=== PATIENT | female | born 2000 | race Caucasian/White ===

== ENCOUNTER → 2024-08-28 15:23 | Outpatient (CLI) | payer OTHER, SELFPAY ==
[2024-08-29 12:35] LABS: Strep Grp B PCR NEG for Grp B Strep
== END ==
PROVIDERS: PCP Family Medicine; Visit Provider Family Medicine
DX: Z36.85 Encounter for antenatal screening for Streptococcus B (principal)
CPT/HCPCS: 87653

== ENCOUNTER → 2024-09-03 10:58 | Outpatient (CLI) | payer OTHER, BC, SELFPAY ==
[2024-09-03 11:51] LABS: COVID-19 CEPHEID 4-PLEX PCR Negative (Negative); Influenza A - CEPHEID Flu A NEGATIVE (NEGATIVE); Influenza B - CEPHEID Flu B NEGATIVE (NEGATIVE)
== END ==
PROVIDERS: PCP Family Medicine; Visit Provider Family Medicine
DX: R05.8 Other specified cough (principal); R68.89 Other general symptoms and signs; R53.83 Other fatigue
CPT/HCPCS: 87637

== ENCOUNTER 2024-09-06 16:59 | Observation (INO) | payer BC, OTHER, SELFPAY | END 2024-09-06 19:32 | disposition home or self-care (01) | LOC: LABOR 17:02 | PROVIDERS: Admitting Provider Family Medicine; PCP Family Medicine; Referring Provider Family Medicine; Visit Provider Family Medicine | DX: O47.1 False labor at or after 37 completed weeks of gestation (principal); Z3A.37 37 weeks gestation of pregnancy | CPT/HCPCS: 59025; 59050; G0378; G0379 ==

== ENCOUNTER 2024-09-15 15:28 | Inpatient (IN) | payer BC, OTHER, SELFPAY ==
[2024-09-15 16:59] LABS: Appearance Urine UA CLEAR; Bilirubin Urine UA NEGATIVE (NEGATIVE); Color Urine UA YELLOW; Glucose Urine UA NEGATIVE (Negative); Ketones Urine UA NEGATIVE (NEGATIVE); Leukocyte Esterase Urine UA TRACE (NEGATIVE); Nitrite Urine UA NEGATIVE (Negative); Occult Blood Urine UA NEGATIVE (Negative); Protein Urine UA TRACE (Negative); Specific Gravity Urine UA 1.025 (1.000-1.035); Urobilinogen Urine UA 1.0 E.U./dL (0.2)
[2024-09-15 17:06] LABS: pH Urine UA 6.0 (4.5-8.0)
[2024-09-15 17:07] LABS: Culture Indicated Urine Specimen Cultured
--- NOTE | 2024-09-15 19:45 | PM.OBHP.IH.1 ---
OB HPI Date/Time Date of admission: 09/15/24 Date Patient Seen: 09/16/24 Time Patient Seen: 06:45 History of Present Condition Chief complaint: decreased movment YOHAN Calculator Estimated Delivery Date Method Current WG Current Estimate 09/25/24 LMP (Certain) 38w 5d Estimated Gestational Age (weeks): 38w4d : 3 Para: 1 Narrative: 24 yo presenting with decreased movement at 38w4d. FHT reassuring on arrival but UA colelcted showing many bacteria and leukocyte esterase. While awaiting labs SVE changes from 3cm/50/-3 --> 5/70/-3 on repeat check 2 hours later. FHT reassuring and reactive. While walking she felt LOF but amnisure negative. complicated by late GAURAV wtih arrival here at 33weeks EGA. Also carrying a previous dx of renal tubular acidosis. She was seen by MFM prior to GAURAV who felt that that this was more likely Vit D deficiency and did not recommend any further management changes. Baby girl Ortiz care: good care Dating criteria OB: LMP confirmed by 1st trimester US Ultrasounds: normal 1st trimester US Obstetrical complications: none Medical complications OB: none Preadmission Labs Last OB Lab Results: Blood Type AB Positive 09/15/24, 20:48 Antibody Screen Negative 09/15/24, 20:48 Hct, (36-46) 33.7 % L 09/15/24, 20:48 Hgb, (12.0-16.0) 11.4 g/dL L 09/15/24, 20:48 Group B Strep (PCR) Neg for grp b strep 08/28/24, 15:23 Glucose Tolerance Testin hr (107) -: PAP smear: Normal (outside labs - negative in 2022 ) External Labs Blood type OB HPI: AB (+) positive -: Antibody screen: negative (outside labs at [facility]), HBsAG: negative (outside labs at [facility]), HIV: negative (outside labs at [facility]), RPR/VDLR: unknown (outside labs at [facility]), Chlamydia screen: negative (outside labs at [facility]) and Gonorrhea screen: negative (outside labs at [facility]) -: Rubella: immune and Varicella: immune HCAB: negative PAP: Normal (2022) Prior (ies) Past Pregnancies Del. Date GA/Weeks Labor Lgth Wt Sex Route Outcome Anesthesia Place Delv Breastfeed Preg Comp Name 07/02/20 ~8 spontaneous 01/19/22 37.6 21 6 lb 14 oz Female vaginal live - full term epidural [facility] 10 months none Ginny Delivery Date: 07/02/20 Last Updated by: Charity Beard RN passed spontaneously, no complications Hx # Term Pregnancies: 1 Hx # Pregnancies: 0 Number of Living Children: 1 Multiple births: 0 Spontaneous abortions: 1 Ectopic pregnancies: 0 Elective abortions: 0 Evaluation Evaluation Baseline heart rate: 150 Variability: Moderate (6-25) monitor accelerations: Present Monitor Decelerations: Absent Contraction Frequency (minutes): 0 Category of Tracing: Reactive Status: Category l Dilation (cm): 5 Dilation: >/=5 cm Effacement: 60-70% station: -3 Position of cervix: mid Consistency: soft Rodriguez score: 8 Non-invasive Membranes Rupture Test: negative [facility] Medical History (Updated 07/23/24 @ 14:57 by Charity Beard RN) depression TBI (traumatic brain injury) (~2015) Gastric ulcer (~2004) Surgical History (Updated 07/23/24 @ 13:52 by Charity Beard RN) H/O tooth extraction (~2022) [place] teeth extracted (~2017) Family History (Updated 07/23/24 @ 13:57 by Charity Beard RN) Sister DiGeorge syndrome Congenital heart defect Grandmother Ovarian cancer Aunt Cervical cancer Grandfather Kidney stones Father Family estrangement Alcoholism Grandfather Diabetes mellitus Social History marital status: number of children: 1 household members: spouse and children lives independently: Yes caregiver/support person: Yes housing: apartment pets and animals: Yes (dog) education level: college (associate's degree) occupational status: unemployed current occupational exposures/hazards: No ginny/temple: [employer] special ginny needs: No travel history: recent ([place] ~2 months before conception) Smoking Status: Former smoker Tobacco: How many years used: 6 (off and on; quit w/ 1st until dtr was ~13 months old) second hand exposure: No alcohol intake: former (occasionally when not ) during the past year weight has: other (back to pre-baby weight at time of conception) well-balanced diet: about half the time daily servings fruits/ve-4 (mostly fruit) caffeine: Yes (100-120mg/day) Type(s) of exercise: other (active w/ toddler) Meds Home Medications and Allergies Home Medications ?Medication ?Instructions ?Recorded ?Confirmed ?Type vitamin-ferrous sulfate tab PO 07/23/24 09/11/24 History 27 mg iron-folic acid 0.8 mg tablet cyclobenzaprine 5 mg tablet 5 mg PO BEDTIME PRN muscle spasm 08/12/24 09/11/24 Rx #30 tabs Allergies Allergy/AdvReac Type Severity Reaction Status Date / Time No Known Drug Allergies Allergy Unverified 09/11/24 15:31 Review of Systems Review of Systems Narrative: contractions starting to get more noticeable after starting pit + movement - LOF OB Exam Vital signs Blood Pressure: 116/71 Pulse Rate: 102 Temperature: 97.0 F Narrative Exam Narrative: GEN: comfortable appearing Pulm: breathing comfortably on RA ABd: gravid MSK: sittng up in bed, moving all extremities neuro: non-focal Objective Labs 09/15/24 20:48 09/15/24 20:48 Labs: Laboratory Results - last 24 hr 09/15/24 16:26 Urine Color Yellow Urine Appearance Clear Urine pH 6.0 Ur Specific [place] 1.025 Urine Protein Trace H Urine Glucose (UA) Negative Urine Ketones Negative Urine Occult Blood Negative Urine Nitrate Negative Urine Bilirubin Negative Urine Urobilinogen 1.0 Ur Leukocyte Esterase Trace H Urine RBC None seen Urine WBC 5-10/hpf H Ur Squamous Epith Cells 5-10 /hpf H Calcium Oxalate Crystal Few H Urine Bacteria Many (>30) H Ur Culture Indicated? Specimen cultured Vol Urine Centrifuged 10ml (spun) Assessment and Plan Assessment and Plan Assessment and Plan narrative: 24 yo presenting at 38w4d (now 38w5d) by LMP c/w8w US wtih decreased movement, reassuring NST, while awaiting labs noting LOF, Amnisure negative. SVE showing cervical change from 3 to 5cm. Decision made to admit to due to cervical change. She was managed expectantly overnight. This AM,has made cervcal change to 6.5cm but still feeling minimal discomfort. Pitocin starting to assist with descent. Will repeat exam in 1-2 hours and determine if safe for rupture at that time. pt planing for epidural so will work on this now while awaiting f/up SVE. # SIUP at term: - admit to LD - continuous monitoring - Anesthesia consult - CBC, TS - cephalic by bedside US - GBS negative # UA on arrival with bacteriuria - one time Ceftriaxone dose 1g Time-Based Coding :: [TOTAL MINUTES] spent with patient and on the chart (including review of chart, obtaining history, exam, reviewing outside data, placing orders, documenting exam and treatment plan, and counseling patient) on [DATE].
[2024-09-15 20:01] VITALS: BP 116/71; PULSE 102; TEMP 36.1
[2024-09-15 21:00] LABS: Add Manual Diff / Slide Review NO; Hematocrit 33.7 % (36-46); Hemoglobin 11.4 g/dL (12.0-16.0); Lymphocytes Absolute Auto 2400 /uL (1100-4500); Mean Corpuscular HGB Conc 33.9 % (30-36); Mean Corpuscular Hemoglobin 27.1 PG (26-34); Mean Corpuscular Volume 79.8 fL (80-100); Platelet Count 331 X10^3/uL (150-400)
[2024-09-15 21:24] LABS: Alanine Aminotransferase 25 IU/L (<35); Albumin 3.3 g/dL (3.5-5.0); Albumin Globulin Ratio 1.0 (1.0-2.8); Alkaline Phosphatase 152 U/L (38-126); Blood Urea Nitrogen 5 mg/dL (7-17); Calcium 8.6 mg/dL (8.4-10.2); Carbon Dioxide 22 mmol/L (22-32); Chloride 103 mmol/L (98-107); Estimated Glomerular Filt Rate > 60 mL/min (>60); Globulin 3.4 g/dL (1.7-4.1); Glucose 97 mg/dL (70-99); HEMOLYSIS < 15 (0-50); Potassium 3.7 mmol/L (3.4-5.1); Sodium 132 mmol/L (137-145); Total Protein 6.7 g/dL (6.3-8.2)
[2024-09-16] MEDS: OXYTOCIN PREMIX 30 UNIT/500 ML PLAST..BAG IV (05:55)
[2024-09-16] MEDS: LACTATED RINGERS 1,000 ML 100 ML IV ×2 (05:55→11:20)
--- NOTE | 2024-09-16 11:30 | PM.AN.REGBLK ---
Regional Block Pre-procedure Procedure: Continuous Lumbar Epidural for L&D (with dural puncture) Attending OB provider: Tegan Salmon PMH/CODY narrative: 24yo female in labor requesting epidural. BMI 46. ASA Class: III Labs: Hct 33.7 % (36-46) L 09/15/24 20:48 Plt Count 331 X10^3/uL (150-400) 09/15/24 20:48 Medications: Current Medications Generic Name Dose Route Start Last Admin Trade Name Freq PRN Reason Stop Dose Admin Calcium Carbonate 1,000 mg 09/15/24 18:51 Calcium Carbonate 500 Mg Tab PO Q2HR PRN Dyspepsia Carboprost Tromethamine 250 mcg 09/15/24 18:51 Carboprost 250 Mcg/Ml Ampul IM Q90M PRN Bleeding Diphenhydramine HCl 25 mg 09/16/24 11:29 Diphenhydramine 50 Mg/Ml Vial IV Q10M PRN Pruritis Ephedrine Sulfate 10 mg 09/16/24 11:29 Ephedrine 50 Mg/Ml Vial IV Q5M PRN Blood pressure decrease more than 20% of baseline. Famotidine 20 mg 09/16/24 09:00 Famotidine 20 Mg Tablet PO BID MELA Oxytocin/Lactated Ringer's 30 unit in 500 mls @ 200 mls/hr 09/15/24 18:51 Oxytocin Premix IV CONT PRN Bleeding Protocol Tranexamic Acid 1,000 mg/ 100 mls @ 600 mls/hr 09/15/24 18:51 Sodium Chloride IV NOW PRN Bleeding Oxytocin/Lactated Ringer's 30 unit in 500 mls @ 2 mls/hr 09/15/24 19:00 09/16/24 05:55 Oxytocin Premix IV 2 milliunit/min TITRATE MELA 2 mls/hr Protocol Administration 2 MILLIUNIT/MIN Ceftriaxone Sodium 1,000 mg/ 100 mls @ 200 mls/hr 09/15/24 21:00 Sodium Chloride IV Q24H MELA FENT 2MCG/ML BUPIV 0.125% EPI 200 mcg in 100 mls @ 6 mls/hr 09/16/24 11:30 Fentanyl/Bupiv/Ns 2mcg/Ml - 0.125% EPIDURAL CONT MELA Lidocaine HCl 20 ml 09/15/24 18:51 Lidocaine 1% 20 Ml INJ INTRA-OP PRN Post Delivery Methylergonovine Maleate 0.2 mg 09/15/24 18:51 Methylergonovine 0.2 Mg Tablet PO Q6HR PRN Heavy Bleeding Methylergonovine Maleate 0.2 mg 09/15/24 18:51 Methylergonovine 0.2 Mg/Ml Vial IM NOW PRN Bleeding Mineral Oil 30 ml 09/15/24 18:51 Mineral Oil 30 Ml Udc TOP PRN PRN Version Misoprostol 800 mcg 09/15/24 18:51 Misoprostol 200 Mcg Tablet KS NOW PRN Bleeding Misoprostol 400 mcg 09/15/24 18:51 Misoprostol 200 Mcg Tablet SL NOW PRN Bleeding Nalbuphine HCl 2.5 mg 09/16/24 11:29 Nalbuphine 20 Mg/Ml Ampul IV Q10M PRN Pruritis Naloxone HCl 0.2 mg 09/15/24 18:51 Naloxone 0.4 Mg/Ml Vial IV Q2MIN PRN Opiate Reversal Ondansetron HCl 4 mg 09/15/24 18:51 Ondansetron 4 Mg/2 Ml Inj IV Q4HR PRN Nausea And Vomiting Oxytocin 10 unit 09/15/24 18:51 Oxytocin 10 Unit/Ml Vial IM NOW PRN Bleeding Allergies: Allergies Allergy/AdvReac Type Severity Reaction Status Date / Time No Known Drug Allergies Allergy Unverified 09/11/24 15:31 Procedure Insertion date: 09/16/24 Insertion time: 11:07 Prep/Local: 1% lidocaine (Chloraprep) Interspace: L3-4 Patient position: sitting Needle: 18 gauge Magdalenatead (with 27g pencil point needle for dural puncture) Loss of resistance with: saline DAMEON at (cm): 8 Catheter placed at SKIN (cm): 16 Catheter in SPACE (cm): 8 Insertion: Yes Paresthesia with insertion Initial Medications TEST DOSE time: 11:09 TEST DOSE: 1.5% lidocaine with epinephrine 1:200k (mL): 3 BOLUS DOSE time: 11:10 BOLUS DOSE (mL): 2 BOLUS DOSE med: other (Same as test dose) Infusion INFUSION: 0.125% bupivacaine and with fentanyl 2 mcg/mL Initial rate (mL/hr): 8 Subsequent interventions: Epidural infusion started at 11:24. Pt rates contraction pain at 1/10, down from 7/10 before epidural placement. Post-procedure Anesthesia date START: 09/16/24 Anesthesia time START: 10:59 Anesthesia date END: 09/16/24 Anesthesia time END: 17:17 Post-procedure Anesthesia Assessment: Yes CV function: HR/BP stable, Yes Resp function: RR/sat/airway adequate, Yes Post-op hydration adequate, Yes Pain control adequate, Yes Nausea & vomiting absent, Yes Temperature > 36 C, Yes Mental status appropriate and No Anesthesia complications
--- NOTE | 2024-09-16 17:39 | PM.OBPRVD ---
Events: Labor Augmentation Labor & Delivery Delivery date: 09/16/24 Delivery Time: 17:17 Intrapartal Events: None Cervical ripening method: none Induction method: none Delivery augmentation: rupture of membranes and pitocin (up to 20mu) Delivery monitor: external FHT Route of delivery: L&D Laceration Description: Labial (shallow hemostatic R labial) Quantitative Blood Loss: 376 Anesthesia Type: Epidural Complications: none Narrative: 24yo at 38w4d presented with decreased movement and was evaluated on LD. Monitoring was reassuring but during work up, she noted LOF. Amnisure was negative but she was found to have made cervical change from 3cm to 5cm so she was admitted to Labor and Delivery. UA showed many bacteria so she was given 1 dose of Ceftriaxone for bacteriuria. She was managed expectantly initially overnight due to progress without augmentation. Do to minimal progress in the morning, pitocin was started. ROM occured at 13:03 with clear fluid via slow rupture with FSE due to station. FHT reassuring thereafter. Pain was controlled with epidural. The patient progressed through the 2nd stage and delivered a viable female with APGARs 7/8 at 17:17 via direct OA after rotation to ROT. A nuchal cord was present and reduced at the perineum. Terminal mec was present. The cord was cut and clamped after 60 second delay. The placenta delivered with gentle cord traction, and appeared complete. The perineum and vagina were inspected with a shallow R labial laceration that was hemostatic and did not require repair. Needle and sponge counts were correct.? The vagina was inspected and no items were left in situ. PREPROCEDURE DIAGNOSIS: Intrauterine at 38w5d GBS negative RH positive Possible renal tubular acidosis, seen by MFM Late GAURAV in 3rd trimester POSTPROCEDURE DIAGNOSIS: Intrauterine at 38w5d, delivered Same as preprocedure Baby Ortiz: Infant gender: Female Presentation: vertex Placenta delivery description: Spontaneous Cord Vessel Description: 3 Vessels and Nuchal Cord score (1 min): 7 score (5 min): 8 Plan for aftercare: Routine care
--- NOTE | 2024-09-16 20:23 | P.HPNB_ITS ---
History History 1 hour old infant born to a 24yo at 38w4d presented with decreased movement and was evaluated on LD. Monitoring was reassuring but during work up, she noted LOF. Amnisure was negative but she was found to have made cervical change from 3cm to 5cm so she was admitted to Labor and Delivery. UA showed many bacteria so she was given 1 dose of Ceftriaxone for bacteriuria. She was managed expectantly initially overnight due to progress without augmentation. Do to minimal progress in the morning, pitocin was started. ROM occured at 13:03 with clear fluid via slow rupture with FSE due to station. FHT reassuring thereafter. Pain was controlled with epidural. The patient progressed through the 2nd stage and delivered a viable female infant with APGARs 7/8 at 17:17 via direct OA after rotation to ROT. A nuchal cord was present and reduced at the perineum. Terminal mec was present. The cord was cut and clamped after 60 second delay. The placenta delivered with gentle cord traction, and appeared complete. The perineum and vagina were inspected with a shallow R labial laceration that was hemostatic and did not require repair. Time of : 17:17 Gestation: term Multiple fetuses: No Mode of delivery: vaginal score (1 min): 7 score (5 min): 8 Complications with delivery: No Nursery Course Nursery: term nursery Maternal RH factor: negative Post delivery complications: Reports none Screening [place] screen labs drawn: unknown Hepatitis B vaccine given: unknown Review of Systems Review of Systems Narrative: infant, mom denies feeding difficulty, breathing, abnormal fussiness. Has not yet voided. Terminal mec present with delivery Exam - Pediatric Vital Signs Vital Signs: Vital Signs Temp Pulse BP 97.0 F L 102 H 116/71 09/15/24 20:01 09/15/24 20:01 09/15/24 20:01 Additional Exam Additional findings: GEN: NAD HEENT: Red Reflex not seen, external ears w/o tags or pits, No cephalohematoma, hard palate intact CV: RRR, no murmurs/rubs/gallops RESP: CTAB, no distress ABD: nl BS, soft, non-distended, no masses, no guarding, clean and dry umbilical stump RECTAL: Patent : Normal female genitalia for EXTR: No swelling or edema in the BLE SKIN: No rashes or lesions, no jaundice NEURO: moving all extremities equally, good tone, Good suck reflex, rooting present Objective Labs 09/15/24 20:48 09/15/24 20:48 Labs: Laboratory Results - last 24 hr 09/15/24 20:48 WBC 9.7 RBC 4.22 Hgb 11.4 L Hct 33.7 L MCV 79.8 L MCH 27.1 MCHC 33.9 RDW 15.4 H Plt Count 331 Neut % (Auto) 64.1 Lymph % (Auto) 24.9 L [place] % (Auto) 9.2 Eos % (Auto) 1.1 L Baso % (Auto) 0.7 Neut # (Auto) 6200 Lymph # (Auto) 2400 [place] # (Auto) 900 Eos # (Auto) 100 Baso # (Auto) 100 Sodium 132 L Potassium 3.7 Chloride 103 Carbon Dioxide 22 BUN 5 L Creatinine 0.49 L Estimated GFR > 60 BUN/Creatinine Ratio 10.2 Glucose 97 Calcium 8.6 Total Bilirubin 0.7 AST 24 ALT 25 Alkaline Phosphatase 152 H Total Protein 6.7 Albumin 3.3 L Globulin 3.4 Albumin/Globulin Ratio 1.0 Blood Type AB Positive Antibody Screen Negative Assessment & Plan Assessment & Plan narrative: 1 hour old infant born via uncomplicated to a 24 yo G[] now [] mom at [] EGA. course complicated by []. Normal care. Labor complicated by []. - Routine care - Hepatitis B Vaccination, Vit K shot and erythromycin ointment - CHD screen prior to discharge - Hearing Screen prior to discharge - screen prior to discharge - , will discharge with Poly-vi-inga - Maternal blood type [] and Antibody [] - [] GBS [] with adequate []inadequate intrapartum prophylaxis. - Maternal HIV [], RPRP [], Hep C [], hep B [] Time-Based Coding :: [TOTAL MINUTES] spent with patient and on the chart (including review of chart, obtaining history, exam, reviewing outside data, placing orders, documenting exam and treatment plan, and counseling patient) on [DATE]. Sarnat Scoring Scale Citation Yannick HB, Abhay L, Sandra C, Yani LM, Joan C, Vale K. Sarnat grading scale for encephalopathy after 45 years: an update proposal. Pediatr Neurol. 2020;113:75?9.
[2024-09-17] MEDS: ACETAMINOPHEN 325 MG TABLET 650 MG PO ×2 (04:13→10:51)
[2024-09-17] MEDS: IBUPROFEN 600 MG TABLET PO (06:51)
--- NOTE | 2024-09-17 07:14 | P.DS_ITS ---
Discharge Providers Provider Date of admission: 09/15/24 15:28 Discharge Date: 09/17/24 Primary care physician: Tegan Salmon MD Consults: 09/15/24 18:52 Consult to Anesthesiology Urgent Comment: Consulting Provider: Tegan Salmon Reason for consultation: Epidural Has provider been notified: No 09/16/24 18:09 Consult to Agricultural Technician Routine Comment: Discharge provider: Tegan Salmon MD Summary Hospital Course Date Patient Seen: 09/17/24 Time Patient Seen: 07:37 Hospital Course: 24yo at 38w4d presented with decreased movement and was evaluated on LD. Monitoring was reassuring but during work up, she noted LOF. Amnisure was negative but she was found to have made cervical change from 3cm to 5cm so she was admitted to Labor and Delivery. UA showed many bacteria so she was given 1 dose of Ceftriaxone for bacteriuria. She was managed expectantly initially overnight due to progress without augmentation. Do to minimal progress in the morning, pitocin was started. ROM occured at 13:03 with clear fluid via slow rupture with FSE due to station. FHT reassuring thereafter. Pain was controlled with epidural. The patient progressed through the 2nd stage and delivered a viable female infant with APGARs 7/8 at 17:17 via direct OA after rotation to ROT. A nuchal cord was present and reduced at the perineum. Terminal mec was present. The cord was cut and clamped after 60 second delay. The placenta delivered with gentle cord traction, and appeared complete. The perineum and vagina were inspected with a shallow R labial laceration that was hemostatic and did not require repair. she is doing well. She is well. Pain controlled with ibuprofen. Bleeding minimal. She is planning on using patches for control to bridge to vasectomy for partner Peripartum Data Delivery Method: Natural Vaginal Laceration Description: Labial (R labial, shallow ) complications: none Ortiz: Gender: Female Disposition of : home Status at Discharge Cognitive/behavioral status at discharge: oriented Functional status at discharge: independent ambulation Overall status at discharge: patient is back to baseline Time Spent with Patient Time attestation: Total time spent providing and/or coordinating discharge services: Objective Labs 09/15/24 20:48 09/15/24 20:48 Exam Vital Signs (past 8 hours): BP- 102/71 P- 98 RR- 17 TEmp 97.7 O2 sat- 96% Narrative Exam Narrative: GEN: Healthy appearing, well-developed, NAD. PSYCH: Good Judgment. AOx3. Normal memory, mood, and affect HEENT: -Head: NC/AT -Eyes: No discharge or redness CV: warm and well perfused LUNGS: breathing comfortably on RA SKIN: Warm, well perfused. No skin rashes or abnormal lesions MSK: No deformities NEURO: Ambulating with no limitations. No focal deficits Discharge Plan Discharge Plan Patient Disposition: Home Discharge orders & Medications Prescriptions: Continued cyclobenzaprine 5 mg tablet 5 mg PO BEDTIME PRN (Reason: muscle spasm) Qty: 30 0RF vit-ferrous sulfat-FA 27 mg iron- 0.8 mg tablet PO Follow up/Referrals: Tegan Salmon MD [Primary Care Provider, [facility]] Visit Report/Discharge Packet Stand Alone Forms: Patient Portal/API, Stroke Signs & Symptoms Discharge Data Primary Care Provider: Tegan Salmon
[2024-09-17] MEDS: DERMOPLAST SPRAY 20% 60 ML 1 SPRAY TOP (10:51)
[2024-09-17] MEDS: LANOLIN OINT 7 GM 1 APPLIC TOP (10:51)
[2024-09-17 13:00] VITALS: BP 116/71; PULSE 102; TEMP 36.1
== END 2024-09-17 13:00 | disposition home or self-care (01) | DRG 807 ==
PROVIDERS: Student in an Organized Health Care Education/Training Program; Admitting Provider Family Medicine; PCP Family Medicine; Referring Provider Family Medicine; Visit Provider Family Medicine
DX: O28.8 Other abnormal findings on antenatal screening of mother (principal); Z37.0 Single live birth; Z3A.38 38 weeks gestation of pregnancy
CPT/HCPCS: 36415; 59025; 59050; 80053; 81001; 84112; 85025; 86850; 86900; 86901; 87086; G0379; J0696; J2590

== ENCOUNTER 2024-12-25 14:52 | Emergency (ER) | payer OTHER, BC, SELFPAY ==
[2024-12-25 15:10] VITALS: BP 149/81; PULSE 84; RESP 18; TEMP 37.2; O2SAT 96; BMI 39.4
--- NOTE | 2024-12-25 15:45 | DI.CT.S_ITS ---
PROCEDURE: CT HEAD/BRAIN WO CON INDICATIONS: PRECIADO x 1 week, pain with rotation of neck TECHNIQUE: Noncontrast 4.5 mm thick angled axial sections acquired from the foramen magnum to the vertex, with coronal and sagittal reformats. For radiation dose reduction, the following was used: automated exposure control, adjustment of mA and/or kV according to patient size. COMPARISON: None. FINDINGS: Image quality: Diagnostic. CSF spaces: Basal cisterns are patent. No extra-axial fluid collections. Ventricles are normal in size and shape. Brain: No midline shift. No intracranial mass effect or hemorrhage. Michaels- white matter interface is normal. Skull and face: Calvarium and visualized facial bones are intact, without suspicious lesions. Sinuses: Visualized sinuses and mastoids are clear. IMPRESSION: No acute intracranial pathology. Dictated by: Chirag Morales M.D. on 12/25/2024 at 17:30 Approved by: Chirag Morales M.D. on 12/25/2024 at 17:30
--- NOTE | 2024-12-25 15:45 | DI.CT.S_ITS ---
PROCEDURE: CT ANGIO HEAD AND NECK INDICATIONS: PRECIADO x 1 week, pain with rotation of neck TECHNIQUE: After the administration of intravenous contrast, 1 mm thick sections acquired from the aortic arch through the [place] of [place]. 3-dimensional zeipsrm-nddcsmyey-osxwdcnqbi (MIP) and/or volume rendering reformats were acquired of the central intracranial vasculature and neck separately. For radiation dose reduction, the following was used: automated exposure control, adjustment of mA and/or kV according to patient size. COMPARISON: None. FINDINGS: Image quality: Diagnostic. Cerebral CT Angiogram: Internal carotid arteries: No acute findings. Intracranial ICA are patent with no significant stenosis. No occlusion. No aneurysm. Anterior cerebral arteries: Unremarkable. No significant stenosis. No occlusion. No aneurysm. Middle cerebral arteries: Unremarkable. No significant stenosis. No occlusion. No aneurysm. Posterior cerebral arteries: Left circulation of the GLUER MACHINE OPERATOR, a normal variant. The right GLUER MACHINE OPERATOR is unremarkable.. No significant stenosis. No occlusion. No aneurysm. Basilar artery: Unremarkable. No significant stenosis. No occlusion. No aneurysm. Vertebral arteries: Unremarkable as visualized. Dural venous sinuses: Unremarkable given phase of enhancement. Other: Arterial phase appearance of the brain parenchyma is unremarkable. Neck CT Angiogram: Internal carotid arteries: Unremarkable. No significant stenosis. No dissection or occlusion. Common carotid arteries: Unremarkable. No significant stenosis. No dissection or occlusion. External carotid arteries: Unremarkable. No occlusion. Vertebral arteries: Unremarkable. No significant stenosis. No dissection or occlusion. Aortic Arch and Mediastinum: Partially visualized aortic arch unremarkable without evidence of aneurysm. Origins of the great vessels unremarkable. Other: Arterial phase soft tissues of the neck and chest are unremarkable. IMPRESSION: No significant intracranial arterial abnormality is seen. No significant abnormality is seen within the arteries of the neck. Any quantitative measurements of stenosis were performed using NASCET criteria. Dictated by: Chirag Morales M.D. on 12/25/2024 at 17:30 Approved by: Chirag Morales M.D. on 12/25/2024 at 17:32
--- NOTE | 2024-12-25 15:46 | ED_ITS ---
HPI - Headache General Chief Complaint: Headache Stated Complaint: migraine for 1wk, stiff neck Time Seen by Provider: 12/25/24 15:36 Source: patient, RN notes reviewed and old records reviewed Mode of arrival: Ambulatory Limitations: no limitations History of Present Illness HPI Narrative: 24-year-old female history of a depression, migraines, 3 months currently who comes in with a complaint of persistent migraine for the past week which is not improving. Patient states came on gradually she does not remember exactly which day it started she states it starts in the left side kind of around her eye and radiates back and down towards her neck. She notes over the past several days she has had increasing discomfort particularly with rotation of her head she states she can flex extend but that has makes a sharp using through her scalp. She denies any fevers or chills. No cold cough or congestion symptoms. No changes to vision. Denies any numbness tingling or weakness. No difficulty with speech. Denies any difficulty with ambulation. She notes some mild nausea but no vomiting. No chest pain or shortness of breath. Patient states she has tried acetaminophen ibuprofen without any improvement. She notes she is supposed to be on antidepressant but forgets to take it regularly, she is also supposed to be on a transdermal estrogen patch but also forgets the timing so she has not been taking these. She denies any prior surgeries. No known drug allergies. No tobacco, alcohol or recreational drugs. She notes she has only been getting about 4 hours asleep nightly and not consecutively secondary to and caring for her 3-month-old and 3-year-old. Related Data Home Medications ?Medication ?Instructions ?Recorded ?Confirmed vitamin-ferrous sulfate tab PO 07/23/2410/28 27 mg iron-folic acid 0.8 mg tablet Previous Rx's ?Medication ?Instructions ?Recorded cyclobenzaprine 5 mg tablet 5 mg PO BEDTIME PRN muscle spasm 08/12/24 #30 tabs fluoxetine 10 mg tablet 10 mg PO DAILY #90 tabs 11/02 09/25 norelgestromin 150 mcg-e.estradiol 1 patch transdermal Q7D #9 ea 11/18/24 35 mcg/24 hr weekly transderm patch (Xulane) metoclopramide HCl 10 mg tablet 10 mg PO Q6H PRN nause a and 12/25/24 (Reglan) vomiting #10 tabs Allergies Allergy/AdvReac Type Severity Reaction Status Date / Time No Known Drug Allergies Allergy Verified 12/25/24 15:15 Review of Systems Review of Systems ROS Unobtainable: All systems reviewed & are unremarkable except as noted in HPI and below Patient History Medical History depression TBI (traumatic brain injury) (~2015) Gastric ulcer (~2004) Surgical History H/O tooth extraction (~2022) Metaline teeth extracted (~2017) Family History Sister DiGeorge syndrome Congenital heart defect Grandmother Ovarian cancer Aunt Cervical cancer Grandfather Kidney stones Father Family estrangement Alcoholism Grandfather Diabetes mellitus Social History marital status: number of children: 1 household members: spouse and children lives independently: Yes caregiver/support person: Yes housing: apartment pets and animals: Yes (dog) education level: college (associate's degree) occupational status: unemployed current occupational exposures/hazards: No ginny/episcopal: Zoroastrianism special ginny needs: No travel history: recent ([place] ~2 months before conception) Smoking Status: Current some day smoker Tobacco: How many years used: 6 (off and on; quit w/ 1st until dtr was ~13 months old) second hand exposure: No alcohol intake: former (occasionally when not ) during the past year weight has: other (back to pre-baby weight at time of conception) well-balanced diet: about half the time daily servings fruits/ve-4 (mostly fruit) caffeine: Yes (100-120mg/day) Type(s) of exercise: other (active w/ toddler) Smoking Status: Current some day smoker tobacco type: vaping Exam Narrative Exam Narrative: GEN: well nourished, well appearing female, alert and oriented x 3, patient appears to be in nontoxic in mild distress. HEENT: Atraumatic, pupils are equal round reactive to light, extraocular movements are intact, nares are clear, TMs are clear with no fluid, there is no conjunctival pallor. Throat is clear without any exudates, erythema, tonsillar enlargement or uvular deviation, no facial droop, patient does have discomfort with rotation, is able to flex and extend. HEART: Regular rate and rhythm without murmur, clicks, rubs. Pulses are equal in upper and lower extremities LUNGS:Lungs clear to auscultation, no wheezes, rales, crackles, chest moves symmetrically ABD:bowel sounds normal, soft, non-tender, no guarding, rebound, rigidity, no masses noted, no hepatosplenomegaly :No CVA tenderness MSCL: Non-tender, no muscle atrophy, muscles strength 5/5 upper and lower extremities, full range of motion NEURO:CN 2-12 intact, sensation normal, reflexes 2/4 upper and lower extremities. finger nose finger test normal, heel mott test normal. SKIN: No rash, erythema or other skin changes noted Initial Vital Signs Initial Vital Signs: Vital Signs Temperature 99.0 F 12/25/24 15:10 Pulse Rate 84 12/25/24 15:10 Respiratory Rate 18 12/25/24 15:10 Blood Pressure 149/81 H 12/25/24 15:10 Pulse Oximetry 96 12/25/24 15:10 Oxygen Delivery Method Room Air 12/25/24 15:10 Course Orders Ordered: ED Orders 12/25/24 15:28 CBC Auto Diff [Complete Blood Count AUTO DIFF] Stat CMP [Comprehensive Metabolic Panel] Stat 12/25/24 15:45 CT angio head and neck Stat CT head/brain wo con Stat 12/25/24 16:35 Ictotest Urine Stat Urine Culture Stat Urine Microscopic Stat 12/25/24 16:48 Covid-19 + FLU A/B + RSV - PCR Stat Discontinued Medications Dexamethasone (Dexamethasone 10 Mg/Ml Vial) 10 mg IV NOW ONE Stop: 12/25/24 17:52 Last Admin: 12/25/24 18:06 Dose: 10 mg Documented By: JEISON Acetaminophen (Ofirmev) 1,000 mg in 100 mls @ 400 mls/hr IV NOW ONE Stop: 12/25/24 15:59 Last Infusion: 12/25/24 18:01 Dose: Infused Documented By: Admin: 12/25/24 17:00 Dose: 400 mls/hr Documented By: JEISON Sodium Chloride (Normal Saline 0.9%) 1,000 mls @ 1,000 mls/hr IV BOLUS ONE Stop: 12/25/24 16:44 Last Infusion: 12/25/24 18:01 Dose: Infused Documented By: Admin: 12/25/24 17:02 Dose: 1,000 mls/hr Documented By: JEISON Ketorolac Tromethamine (Ketorolac 30 Mg/Ml Vial) 15 mg IV NOW ONE Stop: 12/25/24 15:46 Last Admin: 12/25/24 17:00 Dose: 15 mg Documented By: JEISON Metoclopramide HCl (Metoclopramide 10 Mg/2 Ml Inj) 10 mg IV NOW ONE Stop: 12/25/24 17:52 Last Admin: 12/25/24 18:06 Dose: 10 mg Documented By: JEISON Vital Signs Vital signs: Vital Signs - 8 hr 12/25/24 15:10 12/25/24 17:25 12/25/24 17:25 Temperature 99.0 F Pulse Rate 84 68 Respiratory Rate 18 Blood Pressure 149/81 H 111/56 L Pulse Oximetry 96 98 Oxygen Delivery Method Room Air 12/25/24 17:30 12/25/24 17:30 12/25/24 18:00 Temperature Pulse Rate 67 Respiratory Rate Blood Pressure 107/61 117/70 Pulse Oximetry 95 Oxygen Delivery Method 12/25/24 18:00 12/25/24 18:30 12/25/24 18:31 Temperature Pulse Rate 74 79 Respiratory Rate Blood Pressure 121/66 Pulse Oximetry 97 97 Oxygen Delivery Method 12/25/24 18:31 Temperature Pulse Rate 91 H Respiratory Rate Blood Pressure Pulse Oximetry 98 Oxygen Delivery Method MDM - Headache Lab Data 12/25/24 15:28 12/25/24 15:28 Labs: Lab Results 12/25/24 12/25/24 12/25/24 Range/Units 15:28 16:35 16:48 WBC 6.9 (4.5-11.0) X10^3/uL RBC 5.36 H (4.0-5.2) X10^6/uL Hgb 14.6 (12.0-16.0) g/dL Hct 43.1 (36-46) % MCV 80.5 (80-100) fL MCH 27.3 (26-34) PG MCHC 33.9 (30-36) % RDW 16.1 H (11.6-14.8) % Plt Count 429 H (150-400) X10^3/uL Neut % (Auto) 48.5 L (50-75) % Lymph % (Auto) 39.8 (25-40) % [place] % (Auto) 7.6 (3-14) % Eos % (Auto) 3.0 (2-4) % Baso % (Auto) 1.1 (0-2) % Neut # (Auto) 3400 (3938-6240) /uL Lymph # (Auto) 2800 (6099-6684) /uL Winston # (Auto) 500 (0-900) /uL Eos # (Auto) 200 (0-450) /uL Baso # (Auto) 100 (0-100) /uL Sodium 140 (137-145) mmol/L Potassium 3.6 (3.4-5.1) mmol/L Chloride 105 (98-107) mmol/L Carbon Dioxide 22 (22-32) mmol/L BUN 7 (7-17) mg/dL Creatinine 0.62 (0.52-1.04) mg/dL Estimated GFR > 60 (>60) mL/min BUN/Creatinine Ratio 11.3 (6-22) Glucose 87 (70-99) mg/dL Calcium 9.2 (8.4-10.2) mg/dL Total Bilirubin 0.5 (0.2-1.3) mg/dL AST 41 H (14-36) IU/L ALT 56 H (<35) IU/L Alkaline Phosphatase 87 (38-126) U/L Total Protein 8.5 H (6.3-8.2) g/dL Albumin 4.8 (3.5-5.0) g/dL Globulin 3.7 (1.7-4.1) g/dL Albumin/Globulin Ratio 1.3 (1.0-2.8) Ur Bilirubin Confirm Negative (Negative) Urine RBC None seen (0-5/HPF) Urine WBC 1-5/hpf (0-5/HPF) Ur Squamous Epith Cells 10-30 /hpf H (0-5/HPF) Urine Bacteria Many (>30) H (None) Ur Culture Indicated? Cult not indicated Vol Urine Centrifuged 10ml (spun) SARS-CoV-2 (PCR) Negative (Negative) Influenza A (RT-PCR) Flu a negative (NEGATIVE) Influenza B (RT-PCR) Flu b negative (NEGATIVE) RSV (PCR) Negative (Negative) Point of Care Testing Test Results Negative Urine Dip Bedside Urine Glucose Negative Bedside Urine Bilirubin + 1 Bedside Urine Ketone - Negative Urine Specific [place] 1.015 Bedside Urine Occult Blood - Negative Bedside Urine pH 6.5 Bedside Urine Protein - Negative Bedside Urine Urobilinogen +/- 1mg Bedside Urine Nitrite - Negative Bedside Urine Leukocytes + 70 Esterase MDM Narrative Medical decision making narrative: Labs light count of 6.9 hemoglobin 14.6 platelets of 429, electrolytes BUN creatinine are appropriate, AST and ALT are slightly elevated at. COVID/influenza/RSV is negative Head CT no acute intracranial pathology CT head and neck angio no significant intracranial abnormality of the head or neck. Urine preg is negative Of care urine shows leukocyte esterase, no nitrates. 10-30 squamous, many bacteria. 24-year-old female with complaint of persistent migraine for the past week, describes as radiating from the left side and down her neck. She does note she has increased pain with flexion-extension and rotation she otherwise is nontoxic well-appearing with a normal exam no other acute changes she has been afebrile. She is 3 months she notes she has only had 4 hours of sleep which is not consecutive for some time. On recheck. Patient states still has some symptoms but has had some pain improvement. She has improved movement on exam. She is feeling slightly more nauseated and has not had any antiemetics we will give a dose of Reglan, steroid. We will give a short term prescription of Reglan but after discussion patient is felt appropriate for discharge home. We did discuss differential including intracranial bleed, tumor, dissection, aneurysm, meningitis imaging is overall reassuring, patient's exam makes my suspicion for meningitis low although we discussed lumbar puncture. Patient deferring this at this time. I think there maybe a component of lack of sleep discussed with the patient and family having some dedicated sleep time that has on interrupted. Discussed with the patient's and family low threshold to return. Discharge Plan Departure Patient Disposition: Home Clinical Impression: Headache Instructions: DI for Headache Activity Restrictions/Additional Instructions: Follow up for rechecked in the next 24-48 hours if you are not having any improvement. If there is someone that can make sure you have a period of dedicated, uninterrupted sleep 4-6 hours daily this may also be helpful. I know this is very hard to achieve when . You can take Reglan 1 tablet every 6 hours as needed for nausea. Can take acetaminophen up to a 1000 mg and/or ibuprofen up to 600 mg every 6 hours as needed with this medication. Prescription sent to [facility] [place] Please return if you develop any fevers, worsening headache, sudden vision changes, persistent vomiting, any new neurologic changes, numbness tingling or weakness, any changes to speech or movement or other new or concerning changes. Prescriptions: New metoclopramide HCl [Reglan] 10 mg tablet 10 mg PO Q6H PRN (Reason: nausea and vomiting) Qty: 10 0RF No Action cyclobenzaprine 5 mg tablet 5 mg PO BEDTIME PRN (Reason: muscle spasm) Qty: 30 0RF fluoxetine 10 mg tablet 10 mg PO DAILY Qty: 90 3RF Rx Instructions: Take 1 tab daily for 7 days then increase to 20mg daily (2tab) norelgestromin-ethin.estradiol [Xulane] 150-35 mcg/24 hr patch weekly 1 patch transdermal Q7D Qty: 9 3RF Rx Instructions: apply once weekly for 3 weeks of a 4-week cycle vit-ferrous sulfat-FA 27 mg iron- 0.8 mg tablet PO Referrals: Tegan Salmon MD [Primary Care Provider, Family Practice] Stand Alone Forms: Patient Portal/API
[2024-12-25 15:52] LABS: Add Manual Diff / Slide Review NO; Hematocrit 43.1 % (36-46); Hemoglobin 14.6 g/dL (12.0-16.0); Lymphocytes Absolute Auto 2800 /uL (1100-4500); Mean Corpuscular HGB Conc 33.9 % (30-36); Mean Corpuscular Hemoglobin 27.3 PG (26-34); Mean Corpuscular Volume 80.5 fL (80-100); Platelet Count 429 X10^3/uL (150-400)
[2024-12-25 15:58] LABS: Alanine Aminotransferase 56 IU/L (<35); Albumin 4.8 g/dL (3.5-5.0); Albumin Globulin Ratio 1.3 (1.0-2.8); Alkaline Phosphatase 87 U/L (38-126); Blood Urea Nitrogen 7 mg/dL (7-17); Calcium 9.2 mg/dL (8.4-10.2); Carbon Dioxide 22 mmol/L (22-32); Chloride 105 mmol/L (98-107); Estimated Glomerular Filt Rate > 60 mL/min (>60); Globulin 3.7 g/dL (1.7-4.1); Glucose 87 mg/dL (70-99); HEMOLYSIS 18 (0-50); Potassium 3.6 mmol/L (3.4-5.1); Sodium 140 mmol/L (137-145); Total Protein 8.5 g/dL (6.3-8.2)
[2024-12-25 16:47] LABS: Ictotest Urine Negative (Negative)
[2024-12-25 16:57] LABS: Culture Indicated Urine Cult Not Indicated
[2024-12-25] MEDS: KETOROLAC 30 MG/ML VIAL 15 MG IV (17:00)
[2024-12-25] MEDS: ACETAMINOPHEN IV 1,000 MG/100 ML VIAL 400 MG IV (17:00)
[2024-12-25] MEDS: SODIUM CHLORIDE 0.9% 1,000 ML 1000 ML IV (17:02)
[2024-12-25 17:25] VITALS: BP 111/56; PULSE 68; O2SAT 98
[2024-12-25 17:30] VITALS: BP 107/61; PULSE 67; O2SAT 95
[2024-12-25 17:30] LABS: Influenza A - CEPHEID Flu A NEGATIVE (NEGATIVE); Influenza B - CEPHEID Flu B NEGATIVE (NEGATIVE)
[2024-12-25 17:31] LABS: COVID-19 CEPHEID 4-PLEX PCR Negative (Negative)
[2024-12-25 18:00] VITALS: BP 117/70; PULSE 74; O2SAT 97
[2024-12-25] MEDS: METOCLOPRAMIDE 10 MG/2 ML INJ IV (18:06)
[2024-12-25 18:30] VITALS: PULSE 79; O2SAT 97
[2024-12-25 18:31] VITALS: BP 121/66; PULSE 91; O2SAT 98
== END 2024-12-25 18:36 | disposition home or self-care (01) ==
PROVIDERS: Emergency Provider Emergency Medicine; PCP Family Medicine
DX: R51.9 Headache, unspecified (principal); M54.2 Cervicalgia; R11.0 Nausea
CPT/HCPCS: 70450; 70496; 70498; 80053; 81003; 81015; 81025; 85025; 87086; 87637; 96365; 96375; 99284; J0131; J1100; J1885; J2765; J7030